=== PATIENT | female | born 1940 | race Caucasian/White ===

== ENCOUNTER 2016-08-30 08:46 | Emergency (ER) | payer OTHER, BC ==
[~2016-08-30] VITALS: Ht 149.9 cm; Wt 41.8 kg
[~2016-08-30 08:46] MED LIST: ASPIR 8181 M1 PO; CHOLESTOFF450 MG PO; LOTREL PO; SYNTHROID50 MCG PO; ZOLOFT25 MG PO; [UNRECOGNIZED DRUG - OTHER] PO
[2016-08-30] MEDS ORDERED: LIDODERM 5% P1 PATCH TD (10:24)
[2016-08-30] MEDS ORDERED: NAPROSYN500 MG PO (10:24)
[2016-08-30 11:25] VITALS: BP 164/74
== END 2016-08-30 10:28 | disposition home or self-care (01) ==
LOC: EME 08:46
DX: S70.02XA Contusion of left hip, initial encounter (principal); M48.56XA Collapsed vertebra, not elsewhere classified, lumbar region, initial encounter for fracture; W01.0XXA Fall on same level from slipping, tripping and stumbling without subsequent striking against object, initial encounter; Y92.096 Garden or yard of other non-institutional residence as the place of occurrence of the external cause; Z88.6 Allergy status to analgesic agent
CPT/HCPCS: 72100; 72170; 99281; 99284; J1885